=== PATIENT | male | born 1935 | race Caucasian/White ===

== ENCOUNTER → 2018-03-23 15:04 | Outpatient (CLI) | payer MEDICARE, SELFPAY ==
[2018-03-23 18:12] LABS: Absolute Lymphocyte Count 0.96 X10^3/ul (0.83-4.51); Absolute Neutrophil Count 7.7 X10^3/uL (2.0-7.7); Basophil# 0.02 X10^3/uL; Basophil% 0.2 % (0-1); Eosinophil# 0.06 X10^3/uL; Eosinophils% 0.6 % (0-5); Lymphocyte # 0.96 X10^3/ul (4.0); Lymphocyte % 10.4 % (19-41); Mean Corp Hgb Conc 31.4 g/gl (32-36); Mean Corpuscular Hgb 34.4 pg (27.0-32.0); Mean Corpuscular Volume 109.4 fL (80-94); Mean Platelet Vol. 11.1 fl (6.2-12.0); Monocyte# 0.47 X10^3/uL; Monocyte% 5.1 % (0-10); Neutrophil # 7.73 X10^3/uL (2.7-7.7); Neutrophil % 83.5 % (47-70); Platelet Count 135 K/mm3 (150-450); RBC Distribution Width CV 15.1 % (11.6-14.6); RBC Distribution Width SD 59.6 fl (35.1-43.9); White Blood Count 9.3 K/mm3 (4.4-11.0)
[2018-03-23 18:13] LABS: POSITIVE COUNT NO; POSITIVE DIFFERENTIAL NO; POSITIVE MORPHOLOGY NO
== END ==
PROVIDERS: Family Provider Family Medicine; PCP Family Medicine; Visit Provider Family Medicine
DX: I10 Essential (primary) hypertension (principal); E11.9 Type 2 diabetes mellitus without complications; E78.5 Hyperlipidemia, unspecified; R51 Headache
CPT/HCPCS: 36415; 85025

== ENCOUNTER 2018-12-28 18:15 | Emergency (ER) | payer MEDICARE, SELFPAY ==
[2018-12-28 18:16] VITALS: BP 149/76; PULSE 60; RESP 23; TEMP 36.9; O2SAT 97
--- NOTE | 2018-12-28 18:35 | RAD_ITS ---
STUDY: X-RAY - LEFT SHOULDER REASON FOR EXAM: Male, 83 years old. Shoulder TECHNIQUE: 2 view(s) of the shoulder. COMPARISON: None. FINDINGS: There is a minimally displaced fracture of the left humeral neck. Mild degenerative changes are present. Left chest pacemaker is noted. Soft tissues are unremarkable. RAD/Shoulder min 2 Views IMPRESSION: Minimally displaced fracture of the left humeral neck. Electronically Signed: Meet Whelan, at 19:27 EDT Tel , Service support ,
[2018-12-28] MEDS: Morphine 2 MG/ML Syringe IV (18:38)
--- NOTE | 2018-12-28 19:37 | ED.VISSUMM ---
- ER Visit Summary Date of Service: 12/28/18 Chief Complaint: Left shoulder pain History of Present Illness: The patient is a 83 M who has left shoulder pain. He injured it today when they were pulling him up from his chair. Patient has a history of a stroke with left-sided deficits and he needs constant care to help him. The pain is worse with moving it. No history of any fractures on the side. Physical Examination: Left shoulder exam reveals diffuse tenderness proximally. There is a deformity noted with swelling. No clavicular tenderness. He has decreased range of motion without pain when it at rest but with movement he has pain. He has a 2+ radial pulse on the left side Test Results: Left shoulder x-ray reveals a minimally displaced left humeral neck fracture Emergency Department Course and Treatment: Patient will be placed in a sling for comfort. I gave him morphine here but he was still having pain so he was given fentanyl. I will give him oxycodone for home. He will follow-up with his PCP Treatment Plan: [] Disposition: Discharged Impression: Left humeral neck fracture This note was generated with [employer] dictation software. It may contain incorrect words, spelling, and punctuation that were not noted in review of the chart prior to signing ED Disposition - Plan for ED Patient: Referrals: Quirino Watts DO [Primary Care Provider] -
--- NOTE | 2018-12-28 19:38 | ED.DEP ---
ED Disposition - Plan for ED Patient: Disposition: Home or Assisted Living Instructions: ED Fx Shoulder Prescriptions: Oxycodone [Oxyir] 5 mg PO Q6H PRN PRN 3 Days #12 tab PRN Reason: Pain Referrals: Quirino Watts DO [Primary Care Provider] -
[2018-12-28] MEDS: fentaNYL 100 MCG/2 ML Ampul 50 MCG IV (19:48)
[2018-12-28 19:54] VITALS: BP 127/74; PULSE 60; RESP 18; O2SAT 95
[2018-12-28] MEDS: Ondansetron ODT 4 MG Tablet PO (20:11)
[2018-12-28 20:16] VITALS: PULSE 60; RESP 18; O2SAT 95
== END 2018-12-28 20:17 | disposition home or self-care (01) ==
PROVIDERS: Emergency Provider Emergency Medicine; Family Provider Family Medicine; PCP Family Medicine
DX: S42.302A Unspecified fracture of shaft of humerus, left arm, initial encounter for closed fracture (principal); X50.1XXA Overexertion from prolonged static or awkward postures, initial encounter; Y93.9 Activity, unspecified; Y92.9 Unspecified place or not applicable; I25.10 Atherosclerotic heart disease of native coronary artery without angina pectoris; Z86.73 Personal history of transient ischemic attack (TIA), and cerebral infarction without residual deficits; Z79.82 Long term (current) use of aspirin; Z79.899 Other long term (current) drug therapy
CPT/HCPCS: 73030; 96374; 96375; 99285; A4216

== ENCOUNTER 2019-07-18 08:22 | Outpatient (RCR) | payer MEDICARE, SELFPAY ==
[2019-07-18 08:39] VITALS: BP 136/73; PULSE 60; RESP 16; TEMP 36; BMI 25.0
--- NOTE | 2019-07-18 10:28 | HP.PCM_ITS ---
(1) Pressure ulcer of left leg, unstageable Status: Acute Current Visit: Yes Code(s): L89.890 - Pressure ulcer of other site, unstageable (2) Pressure ulcer of left foot, unstageable Status: Acute Current Visit: Yes Code(s): L89.890 - Pressure ulcer of other site, unstageable (3) Pain in left foot Status: Acute Current Visit: Yes Code(s): M79.672 - Pain in left foot (4) PVD (peripheral vascular disease) Status: Acute Current Visit: Yes Code(s): I73.9 - Peripheral vascular disease, unspecified (5) Diabetes mellitus Status: Chronic Current Visit: No Code(s): E11.9 - Type 2 diabetes mellitus without complications History of Present Illness Date of Service: 07/18/19 Chief Complaint: Ulcer to the left posterior lower leg, left heel, distal left hallux History of Wound: This patient presents to the wound healing center today with his son and [id number] after being referred by his primary care physician. Patient is hard of hearing in is a poor historian. Family members gave a good background. Patient has had the ulcer to the left posterior lower leg and left heel for at least 2 months. They have been using different dressing supplies to keep the areas dressed and have been doing her best to keep pressure off of each of these sites. They also relate that last week sometime the patient either bumped or had his left great toe stepped on and they noticed an area of eschar to the end of his great toe starting about 3 days ago and has maybe gotten slightly larger. They continue to deny any signs of surrounding infection to the areas and they deny any drainage or purulence to any of the sites. Currently the patient denies any feelings of nausea, vomiting, fever, chills. Past Medical History Past Medical History: Chronic Problems (Last Reviewed 06/27/19 @ 10:44 by Laura Katz) BPH (benign prostatic hyperplasia) (Chronic) Hypertension (Chronic) Hyperlipemia (Chronic) Diabetes mellitus (Chronic) Allergies/Adverse Reactions: Allergies tape Adverse Reaction (Uncoded 12/28/18 18:19) Rash Home Medications: Ambulatory Orders Medication Instructions Recorded aspirin 81 mg tablet,delayed 81 mg PO DAILY 03/23/18 release amiodarone 100 mg tablet 200 mg PO DAILY #180 tab 09/11/18 Carvedilol 3.0125 mg PO BID 12/28/18 Furosemide [Lasix] 20 mg PO PRN PRN 12/28/18 Pravastatin Sodium 20 mg PO QHS 12/28/18 tamsulosin 0.4 mg capsule 0.4 mg PO DAILY #90 cap 03/05/19 Sertraline HCl [Zoloft] 12.5 mg PO DAILY 07/18/19 Smoking Status: Never smoker Review of Systems Constitutional: Denies: Chills, Fever, Weight Change Cardiovascular: Denies: Chest Pain, Palpitations Respiratory: Denies: Cough, Shortness of Breath Gastrointestinal: Denies: Nausea, Vomiting Musculoskeletal: Reports: - - Left lower extremity tenderness and areas of ulcers Skin: Reports: - - Ulcers to the left lower extremity Psychiatric: Reports: Depression - Physical Exam Vital Signs Temp Pulse Resp BP 96.8 F L 60 16 136/73 H 07/18/19 08:39 07/18/19 08:39 07/18/19 08:39 07/18/19 08:39 General: Alert, Oriented x3, Cooperative, No apparent distress Extremities: Capillary Refill Less than 3 Seconds - To distal digits of the left and right foot, No Calf Tenderness - Negative Kiko and Cutler signs bilateral, Diminished Peripheral Pulses - Nonpalpable DP and PT pulses bilateral Skin: Ulcer/ Wound - Unstageable ulcers noted to the left posterior lower leg, left heel, and left distal hallux. There is some eschar noted in these areas. There is no surrounding/streaking cellulitis, there is no purulence, no malodor, and there is no bogginess or fluctuance appreciated to these areas. Wound Measurements and Assessment WC - Nurse 1 - General Ulcer Measurement Start: 07/18/19 08:34 Freq: Status: Active Protocol: Activity Type Activity Date Activity User E-Sign Co-Sign Detail Recorded Client Recorded Date Recorded By Document 07/18/19 08:39 DL [id number] 07/18/19 09:12 DL 07/18/19 08:39 Wound Center Nurse 1 [Ulcer Assessment] #3 LLE Post -Current Size (cm) - Length 4.3 -Current Size (cm) - Width 2 -Current Size (cm) - Depth 0.1 -Total Square Cm 8.6 -Photo Taken Yes -Classification - Thickness Unclassifiable (Eschar Covered ) -Exudate Amt None Present -Wound Margin Distinct, Outline Attached -Granulation Amt None Present (0 %) -Necrosis Amt Large (67-100%) -Necrotic Tissue Type Eschar -Structure Exposed N/A -Texture (Rosa-wound Skin Appearance) Scarring -Color (Rosa-wound Skin Appearance) Erythema,Rubor -Temperature (Rosa-wound Skin No Abnormality Appearance) (Pt Warm) -Tenderness on Palpation (Rosa-wound No Skin Appearance) -Ulcer Cleansing Wound Cleanser -Foul Odor after Cleansing No -Anesthetic Used 5% Lidocaine Gel # LGrt Toe -Current Size (cm) - Length 1.1 -Current Size (cm) - Width 0.6 -Current Size (cm) - Depth 0.1 -Total Square Cm 0.66 -Photo Taken Yes -Classification - Thickness Unclassifiable (Eschar Covered ) -Exudate Amt Small -Exudate Type Serosanguineous -Wound Margin Distinct, Outline Attached -Granulation Amt None Present (0 %) -Necrosis Amt Large (67-100%) -Necrotic Tissue Type Eschar -Structure Exposed N/A -Texture (Rosa-wound Skin Appearance) Localized Edema -Moisture (Rosa-wound Skin Appearance Dry/Scaly ) -Color (Rosa-wound Skin Appearance) Erythema -Temperature (Rosa-wound Skin No Abnormality Appearance) (Pt Warm) -Tenderness on Palpation (Rosa-wound No Skin Appearance) -Ulcer Cleansing Wound Cleanser -Foul Odor after Cleansing No -Anesthetic Used 5% Lidocaine Gel #1 L Heel Cluster -Current Size (cm) - Length 4.2 -Current Size (cm) - Width 4 -Current Size (cm) - Depth 0.1 -Total Square Cm 16.8 -Photo Taken Yes -Classification - Thickness Unclassifiable (Eschar Covered ) -Exudate Amt Small -Exudate Type Serosanguineous -Wound Margin Distinct, Outline Attached -Granulation Amt None Present (0 %) -Necrosis Amt Large (67-100%) -Necrotic Tissue Type Eschar -Structure Exposed N/A -Texture (Rosa-wound Skin Appearance) Friable, Scarring -Moisture (Rosa-wound Skin Appearance Dry/Scaly ) -Color (Rosa-wound Skin Appearance) Erythema,Rubor -Temperature (Rosa-wound Skin No Abnormality Appearance) (Pt Warm) -Tenderness on Palpation (Rosa-wound No Skin Appearance) -Ulcer Cleansing Wound Cleanser -Foul Odor after Cleansing No -Anesthetic Used 5% Lidocaine Gel WC - Nurse 2 - General Ulcer CM Notes Start: 07/18/19 08:34 Freq: Status: Active Protocol: Activity Type Activity Date Activity User E-Sign Co-Sign Detail Recorded Client Recorded Date Recorded By Document 07/18/19 09:37 DV [id number] 07/18/19 09:41 DV 07/18/19 09:37 Pain Scale: 0-10 Numeric [Pain] -Is Patient Pain Free? No Musculoskeletal: Tenderness - Some tenderness appreciated with palpation/manipulation of the ulcer sites noted above, - - Paralysis to left lower extremity from previous stroke Neurological: Sensory exam intact to light touch and pain - With some altered sensation to lower extremities more so on the left side. Psych/Mental Status: Normal Affect, Appropriate Debridement Note Post-Debridement Measurements/Treatment WC - Nurse 2 - General Ulcer CM Notes Start: 07/18/19 08:34 Freq: Status: Active Protocol: Activity Type Activity Date Activity User E-Sign Co-Sign Detail Recorded Client Recorded Date Recorded By Document 07/18/19 09:37 DV [id number] 07/18/19 09:41 DV 07/18/19 09:37 Pain Scale: 0-10 Numeric Is Patient Pain Free? No No debridement was completed today Assessment/Plan Active Problems (Last Reviewed 06/27/19 @ 10:44 by Laura Katz) Pressure ulcer of left leg, unstageable (Acute) Pressure ulcer of left foot, unstageable (Acute) Pain in left foot (Acute) PVD (peripheral vascular disease) (Acute) Assessment: As noted above Plan: Initial patient examination evaluation was performed with his family members present in the room. Patient noted to have unstageable ulcers as noted above to the left lower extremity with eschar overlying these areas. No debridement was performed today due to these appearing to be of a vascular etiology. Each of the sites was dressed with Betadine painted to the areas followed by dry sterile dressing. The patient as well as his family members were educated on the absolute importance of keeping each of these ulcer sites completely offloaded at all times while patient is seated or laying down. He is to do this with the assistance of pillows and to keep the ulcer sites complet maged floated with nothing but air underneath of them. These areas do not appear acutely infected at this time. Due to these areas appearing vascular in nature as well as the new onset of the distal left hallux eschar that has been getting slowly worse over the last few days, I feel it is in the patient's best interest to have a full vascular work-up sooner than later. This patient is scheduled a t this time to see Dr. De Leon on July 22. Patient was instructed that should the areas start to progressively worsen before this appointment, that they are to go to the emergency room. All questions were answered to the patient and the patient's family satisfaction. Again there continue to monitor for any signs or symptoms of local infection or any significant worsening of his ulcer sites, and they are to go to the emergency room immediately if noted. Otherwise, the patient will follow back up in clinic in 1 week to check on progress.
== END 2019-08-16 23:59 ==
LOC: WC 08:22
PROVIDERS: Family Provider Family Medicine; PCP Family Medicine; Visit Provider Podiatrist
DX: L89.890 Pressure ulcer of other site, unstageable (principal); I73.9 Peripheral vascular disease, unspecified; E11.9 Type 2 diabetes mellitus without complications; I10 Essential (primary) hypertension; E78.5 Hyperlipidemia, unspecified; N40.0 Benign prostatic hyperplasia without lower urinary tract symptoms; Z79.899 Other long term (current) drug therapy; Z79.82 Long term (current) use of aspirin; F32.9 Major depressive disorder, single episode, unspecified
CPT/HCPCS: 99213; G0463

== ENCOUNTER → 2019-07-25 08:36 | Outpatient (CLI) | payer MEDICARE, SELFPAY ==
[2019-07-18 08:39] VITALS: BMI 25.0
[2019-07-24 14:57] VITALS: BMI 25.0
--- NOTE | 2019-07-25 08:39 | ADUL_ITS ---
Reason For Study: Atherosclerosis Left Velocities Ext Iliac Artery, dist = 54.4 cm./sec. Common Femoral Artery, mid = 56.3 cm./sec. Supf. Femoral Artery, prox = 63.9 cm./sec. Supf. Femoral Artery, mid = 46.8 cm./sec. Supf. Femoral Artery, dist = 31.1 cm./sec. Profunda Femoral Artery = 28.9 cm./sec. Popliteal Artery, proximal, = 40.6 cm./sec. Popliteal Artery, mid = 30.4 cm./sec. Popliteal Artery, distal = 31.5 cm./sec. Post. Tibial Artery, prox = 31.1 cm./sec. Post Tibial Artery, mid = 28.9 cm./sec. Post Tibial Artery, dist. = 47.8 cm./sec. Peroneal Artery, prox = 43.1 cm./sec. Peroneal Artery, mid = 68.6 cm./sec. Peroneal Artery,dist. = 59 cm./sec. Ant.Tibial Artery, prox = 55.3 cm./sec. Ant Tibial Artery, mid = 63.8 cm./sec. Ant. Tibial Artery, distal = 55.3 cm./sec. Procedure Exam performed in department. Interpretation Summary 1. Left leg with no stenosis and triphasic flow throughout. Ordering Physician: Kyaw De Leon Referring Physician: Nolan Watts M.D. Performed By: Sherry Bond RVT
--- NOTE | 2019-07-25 08:39 | ART_ITS ---
Reason For Study: Atherosclerosis Procedure A bilateral lower extremity continuous wave Doppler with analog waveform analysis and ankle brachial indexes. Left Segmental Pressures Left brachial= 118mmHg. Left posterior tibial artery = 194mmHg. Left dorsalis pedis artery = 172mmHg. Left digit = 83 mmHg. The left dorsalis pedis waveforms are monophasic. The left posterior tibial artery waveforms are biphasic. Right Segmental Pressures Right brachial= 117mmHg. Right posterior tibial artery = >254mmHg. Right dorsalis pedis artery = 117mmHg. Right digit = 66 mmHg. The right dorsalis pedis waveforms are biphasic. The right posterior tibial artery waveforms are biphasic. Indices The right ankle brachial index by the dorsalis pedis is 0.99. The right ankle brachial index by the posterior tibial artery is NC. The right digital-brachial index is 0.56. The left ankle brachial index by the dorsalis pedis is 1.46. The left ankle brachial index by the posterior tibial artery is 1.64. The left digital-brachial index is 0.70. Interpretation Summary 1. right leg with ROYAL 0.99 and DBI 0.56 and biphasic flow. 2. Left with ROYAL 1.64 and more of monohasic waveform. DBI 0.7. Further evaluation as clinically warranted. Ordering Physician: Kyaw De Leon Referring Physician: Nolan Watts M.D. Performed By: Sherry Bond RVT
[2019-07-25 11:07] LABS: Absolute Neutrophil Count 5.3 X10^3/uL (2.0-7.7); Basophil# 0.01 X10^3/uL; Basophil% 0.2 % (0-1); Eosinophil# 0.04 X10^3/uL; Eosinophils% 0.6 % (0-5); Hematocrit 37.7 % (40-54); Lymphocyte % 9.3 % (19-41); Mean Corp Hgb Conc 31.8 g/dL (32-36); Mean Corpuscular Hgb 36.1 pg (27.0-32.0); Mean Corpuscular Volume 113.6 fL (80-94); Mean Platelet Vol. 11.7 fl (6.2-12.0); Monocyte# 0.45 X10^3/uL; NRBC Flagged by Analyzer 0 % (0-5); Neutrophil # 5.28 X10^3/uL (2.7-7.7); Neutrophil % 81.8 % (47-70); POSITIVE COUNT YES; POSITIVE DIFFERENTIAL YES; POSITIVE MORPHOLOGY YES; Platelet Count 94 K/mm3 (150-450); RBC Distribution Width CV 15.4 % (11.6-14.6); RBC Distribution Width SD 65.1 fl (35.1-43.9); Red Blood Count 3.32 M/mm3 (4.6-6.2); White Blood Count 6.5 K/mm3 (4.4-11.0)
[2019-07-25 11:08] LABS: Differential Indicated SCAN CRITERIA MET
[2019-07-25 11:37] LABS: ALB/GLOB Ratio 0.8 RATIO (0.9-2.4); AST(SGOT) 42 U/L (15-37); Alanine Aminotransfer ALT/SGPT 69 U/L (16-61); Albumin, Serum 2.5 g/dL (3.2-5.0); Alkaline Phosphatase 92 U/L (45-117); Anion Gap 4 (5-15); BUN 29 mg/dL (7-18); BUN/Creat Ratio 33.9 RATIO (10-20); Calcium,Total 8.1 mg/dL (8.5-10.1); Chloride 110 mmol/L (98-107); Creatinine, Serum 0.86 mg/dL (0.70-1.30); EST Glomerular Filtration Rate 90 mL/min (>60); Est Glom Filt Rate - Afr Amer 109 mL/min (>60); Globulin 3.1 g/dL (2.2-4.2); Glucose 141 mg/dL (74-106); Potassium 3.1 mmol/L (3.5-5.1); Protein, Total 5.6 g/dL (6.4-8.2); Sodium Level 142 mmol/L (136-145)
[2019-07-25 11:45] LABS: Anisocytosis 1+; Platelet Estimate MOD DEC (ADEQ)
== END ==
PROVIDERS: Family Provider Family Medicine; PCP Family Medicine; Referring Provider Surgery Vascular Surgery; Visit Provider Surgery Vascular Surgery
DX: I70.245 Atherosclerosis of native arteries of left leg with ulceration of other part of foot (principal); L89.890 Pressure ulcer of other site, unstageable; Z86.73 Personal history of transient ischemic attack (TIA), and cerebral infarction without residual deficits
CPT/HCPCS: 36415; 80053; 85025; 93922; 93926

== ENCOUNTER 2019-09-11 09:31 | Outpatient (RCR) | payer MEDICARE, SELFPAY ==
[2019-07-24 14:57] VITALS: BMI 25.0
[2019-08-17 01:01] VITALS: BP 136/73; PULSE 60; RESP 16; TEMP 36
[2019-09-11 09:35] VITALS: BP 101/61; PULSE 60; RESP 18; TEMP 35.8; BMI 25.0
--- NOTE | 2019-09-11 12:47 | PCM.WC.HP ---
(1) Peripheral arterial occlusive disease Status: Acute Current Visit: Yes Code(s): I77.9 - Disorder of arteries and arterioles, unspecified (2) Cerebrovascular accident Status: Chronic Current Visit: Yes Code(s): I63.9 - Cerebral infarction, unspecified Comment: (3) PVD (peripheral vascular disease) Status: Acute Current Visit: Yes Code(s): I73.9 - Peripheral vascular disease, unspecified (4) Failure to thrive in adult Status: Acute Current Visit: Yes Code(s): R62.7 - Adult failure to thrive (5) Pressure ulcer of left foot, unstageable Status: Acute Current Visit: Yes Code(s): L89.890 - Pressure ulcer of other site, unstageable (6) Pressure ulcer, stage 2 Status: Acute Current Visit: Yes Qualifiers: Pressure injury location: sacral region Qualified Code(s): L89.152 - Pressure ulcer of sacral region, stage 2 Code(s): L89.92 - Pressure ulcer of unspecified site, stage 2 Comment: left foot, onset 09/01/17 (7) Dysphagia as late effect of cerebrovascular accident (CVA) Status: Acute Current Visit: Yes Code(s): I69.391 - Dysphagia following cerebral infarction (8) Acute renal failure Status: Acute Current Visit: Yes Code(s): N17.9 - Acute kidney failure, unspecified (9) Malnutrition due to starvation Status: Acute Current Visit: Yes Code(s): E46 - Unspecified protein-calorie malnutrition History of Present Illness Date of Service: 09/11/19 Chief Complaint: Ulcer to the left posterior lower leg, left heel, distal left hallux History of Wound: This patient presents to the wound healing center July [address] Alvarado states he met with his son and [id number] after being referred by his primary care physician. Patient is hard of hearing in is a poor historian. Family members gave a good background. Patient has had the ulcer to the left posterior lower leg and left heel for at least 2 months. They have been using different dressing supplies to keep the areas dressed and have been doing her best to keep pressure off of each of these sites. They also relate that last week sometime the patient either bumped or had his left great toe stepped on and they noticed an area of eschar to the end of his great toe starting about 3 days ago and has maybe gotten slightly larger. They continue to deny any signs of surrounding infection to the areas and they deny any drainage or purulence to any of the sites. Currently the patient denies any feelings of nausea, vomiting, fever, chills. Patient was seen by Dr. De Leon and studies were done that showed that he has arterial flow problems into the left lower leg probably from the stroke. The son complains that he keeps getting new wounds and he has one on his sacral area but the ones on the back of the legs have eschar but the eschar goes deep into the muscle of his legs. He also has not eaten because he has dysphasia and this has started in the last few months but it is gotten worse in the last few days where he is not eaten anything. Patient also shows on his lab work anemia malnutrition low platelet count down to 94. After evaluating the patient and listening to family his son I discussed with him that he needs to talk with hospice for end-of-life care that his father probably only has about 6 more weeks to living if that with his inability to swallow and he is not eating or drinking. Urine output is down to almost nothing from his starvation. Family is beside themselves they just want to do what is right. Son is open to hospice and just wants to make sure that he gets good care at this time he is being cared at home by home health care which is fine but they could help him make him more comfortable. Past Medical History Past Medical History: Chronic Problems (Last Reviewed 07/24/19 @ 15:[address] Quirino Watts, DO) Rhinitis, chronic (Chronic) BPH (benign prostatic hyperplasia) (Chronic) Cerebrovascular accident (Chronic) 2017,2015 Hypertension (Chronic) Hyperlipemia (Chronic) Allergies/Adverse Reactions: Allergies tape Adverse Reaction (Uncoded 09/11/19 11:32) Rash Home Medications: Ambulatory Orders Medication Instructions Recorded aspirin 81 mg tablet,delayed 81 mg PO DAILY 03/23/18 release Carvedilol 3.125 mg PO BID 12/28/18 Furosemide [Lasix] 20 mg PO DAILY 12/28/18 Pravastatin Sodium 20 mg PO QHS 12/28/18 Sertraline HCl [Zoloft] 25 mg PO DAILY 07/18/19 levocetirizine 5 mg tablet 5 mg PO DAILY #30 tab 07/24/19 Acetaminophen [Tylenol] 650 mg PO BID 09/11/19 Amiodarone HCl [Pacerone] 200 mg PO BID 09/11/19 Lives: Spouse/ Significant Other Smoking Status: Never smoker Alcohol: None Drugs: None Review of Systems Constitutional: Denies: Chills, Fever Eyes: Reports: Pain - All over. Denies: Blurred vision, Drainage HEENT: Reports: Difficulty Hearing, Difficulty Swallowing, Dysphasia. Denies: Sore Throat, Visual Changes Cardiovascular: Denies: Chest Pain, Palpitations, Syncope Respiratory: Denies: Cough, Shortness of Breath Gastrointestinal: Denies: Abdominal Pain, Nausea, Vomiting Genitourinary: Denies: Dysuria, Frequency Musculoskeletal: Denies: Joint Pain, Muscle pain Skin: Denies: Jaundice, Rash Neurological: Denies: Balance problems, Change in Speech, Difficulty swallowing, Focal weakness Psychiatric: Denies: Anxiety, Depression Endocrine: Denies: Change in Body Habitus Hematologic/ Lymphatic: Denies: Adenopathy - Physical Exam Vital Signs Temp Pulse Resp BP 96.4 F L 60 18 101/61 09/11/19 09:35 09/11/19 09:35 09/11/19 09:35 09/11/19 09:35 General: Oriented x3, Cooperative, Well developed HEENT: Atraumatic, PERRLA Oral: Moist Mucosa Neck: Supple, No JVD Lungs: Clear to auscultation, Normal air movement Cardiovascular: Regular Rhythm, Irregular Rate, Murmur Abdomen: Soft, No Hepato-splenomegaly, Hypoactive Bowel Sounds, Tender - The gastric area Extremities: No clubbing, Edema - Left arm and left lower leg foot Skin: Ulcer/ Wound - Posterior bilateral lower extremities coccyx elbows Wound Measurements and Assessment WC - Nurse 1 - General Ulcer Measurement Start: 09/11/19 09:35 Freq: Status: Active Protocol: Activity Type Activity Date Activity User E-Sign Co-Sign Detail Recorded Client Recorded Date Recorded By Document 09/11/19 09:35 [facility] [id number] 09/11/19 10:02 [facility] 09/11/19 09:35 Wound Center Nurse 1 [Ulcer Assessment] #8 SACRAL CLUSTER -Current Size (cm) - Length 3.4 -Current Size (cm) - Width 5.3 -Current Size (cm) - Depth 0.1 -Total Square Cm 18.02 -Date of Last Picture (Recall this 09/11/19 field) -Photo Taken Yes -Epithelialization None Present -Tunneling No -Undermining/Tunneling No -Circular Undermining No -Exudate Amt None Present -Wound Margin Distinct, Outline Attached -Granulation Amt Medium (34-66%) -Granulation Quality Red -Slough/Fibrin Yes -Necrosis Amt Medium (34-66%) -Necrotic Tissue Type Adherent Slough -Texture (Rsoa-wound Skin Appearance) Assessed, Scarring -Moisture (Rosa-wound Skin Appearance Assessed ) -Color (Orsa-wound Skin Appearance) Assessed, Erythema -Temperature (Rosa-wound Skin No Abnormality Appearance) (Pt Warm) -Tenderness on Palpation (Rosa-wound No Skin Appearance) -Ulcer Cleansing SOAPY WATER -Foul Odor after Cleansing No -Anesthetic Used 4% Lidocaine Solution #7- L GLUTEAL FOLD -Combined with other wound No -Current Size (cm) - Length 3 -Current Size (cm) - Width 1.8 -Current Size (cm) - Depth 0.1 -Total Square Cm 5.4 -Date of Last Picture (Recall this 09/11/19 field) -Photo Taken Yes -Epithelialization None Present -Tunneling No -Undermining/Tunneling No -Circular Undermining No -Exudate Amt None Present -Wound Margin Distinct, Outline Attached -Granulation Amt None Present (0 %) -Slough/Fibrin Yes -Necrosis Amt Large (67-100%) -Necrotic Tissue Type Eschar -Texture (Rosa-wound Skin Appearance) Assessed, Scarring -Moisture (Rosa-wound Skin Appearance Assessed ) -Color (Rosa-wound Skin Appearance) Assessed, Erythema -Temperature (Rosa-wound Skin No Abnormality Appearance) (Pt Warm) -Tenderness on Palpation (Rosa-wound No Skin Appearance) -Ulcer Cleansing SOAPY WATER -Foul Odor after Cleansing No -Anesthetic Used 4% Lidocaine Solution #6 RLE POSTERIOR CLUSTER -Combined with other wound No -Current Size (cm) - Length 12 -Current Size (cm) - Width 1.3 -Current Size (cm) - Depth 0.2 -Total Square Cm 15.6 -Date of Last Picture (Recall this 09/11/19 field) -Photo Taken Yes -Epithelialization None Present -Tunneling No -Undermining/Tunneling No -Circular Undermining No -Exudate Amt None Present -Wound Margin Distinct, Outline Attached -Granulation Amt None Present (0 %) -Slough/Fibrin Yes -Necrosis Amt Large (67-100%) -Necrotic Tissue Type Eschar -Texture (Rosa-wound Skin Appearance) Assessed, Scarring -Moisture (Rosa-wound Skin Appearance Assessed,Dry/ ) Scaly -Color (Rosa-wound Skin Appearance) Assessed, Erythema -Temperature (Rosa-wound Skin No Abnormality Appearance) (Pt Warm) -Tenderness on Palpation (Rosa-wound Yes Skin Appearance) -Ulcer Cleansing SOAPY WATER -Foul Odor after Cleansing No -Anesthetic Used 4% Lidocaine Solution #5- R ELBOW -Combined with other wound No -Current Size (cm) - Length 1.3 -Current Size (cm) - Width 1.6 -Current Size (cm) - Depth 0.2 -Total Square Cm 2.08 -Date of Last Picture (Recall this 09/11/19 field) -Photo Taken Yes -Epithelialization None Present -Tunneling No -Undermining/Tunneling No -Circular Undermining No -Exudate Amt None Present -Wound Margin Distinct, Outline Attached -Granulation Amt Medium (34-66%) -Granulation Quality Pale,Red -Slough/Fibrin Yes -Necrosis Amt Medium (34-66%) -Necrotic Tissue Type Adherent Slough -Texture (Rosa-wound Skin Appearance) Assessed, Scarring -Moisture (Rosa-wound Skin Appearance Assessed,Dry/ ) Scaly -Color (Rosa-wound Skin Appearance) Assessed -Temperature (Rosa-wound Skin No Abnormality Appearance) (Pt Warm) -Tenderness on Palpation (Rosa-wound No Skin Appearance) -Ulcer Cleansing Rinsed/ Irrigated with Saline -Foul Odor after Cleansing No -Anesthetic Used 4% Lidocaine Solution #4- L ELBOW SKIN TEAR OBTAINED 09/11/19 -Combined with other wound No -Current Size (cm) - Length 1.1 -Current Size (cm) - Width 2 -Current Size (cm) - Depth 0.1 -Total Square Cm 2.2 -Date of Last Picture (Recall this 09/11/19 field) -Photo Taken Yes -Epithelialization None Present -Tunneling No -Undermining/Tunneling No -Circular Undermining No -Exudate Amt Small -Exudate Type Sanguineous -Wound Margin Distinct, Outline Attached -Granulation Amt Large (67-100%) -Granulation Quality Red -Slough/Fibrin No -Necrosis Amt None Present (0 %) -Structure Exposed None/Limited to Skin Breakdown -Texture (Rosa-wound Skin Appearance) Assessed -Moisture (Rosa-wound Skin Appearance Assessed,Dry/ ) Scaly -Color (Rosa-wound Skin Appearance) Assessed, Ecchymosis -Temperature (Rosa-wound Skin No Abnormality Appearance) (Pt Warm) -Tenderness on Palpation (Rosa-wound No Skin Appearance) -Ulcer Cleansing Rinsed/ Irrigated with Saline -Foul Odor after Cleansing No -Anesthetic Used 4% Lidocaine Solution #3 LLE Post -Combined with other wound No -Current Size (cm) - Length 8.8 -Current Size (cm) - Width 1.6 -Current Size (cm) - Depth 0.4 -Total Square Cm 14.08 -Date of Last Picture (Recall this 09/11/19 field) -Photo Taken Yes -Epithelialization None Present -Tunneling No -Undermining/Tunneling No -Circular Undermining No -Exudate Amt Small -Exudate Type Sanguineous -Wound Margin Distinct, Outline Attached -Granulation Amt None Present (0 %) -Slough/Fibrin Yes -Necrosis Amt Large (67-100%) -Necrotic Tissue Type Eschar -Texture (Rosa-wound Skin Appearance) Assessed, Scarring -Moisture (Rosa-wound Skin Appearance Assessed ) -Color (Rosa-wound Skin Appearance) Assessed, Erythema -Temperature (Rosa-wound Skin No Abnormality Appearance) (Pt Warm) -Tenderness on Palpation (Rosa-wound Yes Skin Appearance) -Ulcer Cleansing SOAPY WATER -Foul Odor after Cleansing No -Anesthetic Used 4% Lidocaine Solution #2 L Great Toe -Combined with other wound No -Current Size (cm) - Length 0.1 -Current Size (cm) - Width 0.1 -Current Size (cm) - Depth 0.1 -Total Square Cm 0.01 -Date of Last Picture (Recall this 09/11/19 field) -Photo Taken Yes -Epithelialization None Present -Tunneling No -Undermining/Tunneling No -Circular Undermining No -Exudate Amt None Present -Wound Margin Distinct, Outline Attached -Granulation Amt None Present (0 %) -Slough/Fibrin Yes -Necrosis Amt Large (67-100%) -Necrotic Tissue Type Eschar -Texture (Rosa-wound Skin Appearance) Assessed, Scarring -Moisture (Rosa-wound Skin Appearance Assessed ) -Color (Rosa-wound Skin Appearance) Assessed, Erythema -Temperature (Rosa-wound Skin No Abnormality Appearance) (Pt Warm) -Tenderness on Palpation (Rosa-wound No Skin Appearance) -Ulcer Cleansing SOAPY WATER -Foul Odor after Cleansing No -Anesthetic Used 4% Lidocaine Solution #1 L Heel Cluster -Combined with other wound No -Current Size (cm) - Length 5.3 -Current Size (cm) - Width 2.6 -Current Size (cm) - Depth 0.3 -Total Square Cm 13.78 -Date of Last Picture (Recall this 09/11/19 field) -Photo Taken Yes -Epithelialization None Present -Tunneling No -Undermining/Tunneling Yes -Undermining/Tunneling Starts (O' 6 clock) -Undermining/Tunneling Ends (O'clock) 9 -Maximum Distance (cm) 0.4 -Circular Undermining No -Exudate Amt Small -Exudate Type Sanguineous -Wound Margin Distinct, Outline Attached -Granulation Amt None Present (0 %) -Slough/Fibrin Yes -Necrosis Amt Large (67-100%) -Necrotic Tissue Type Eschar -Texture (Rosa-wound Skin Appearance) Assessed, Scarring -Moisture (Rosa-wound Skin Appearance Assessed ) -Color (Rosa-wound Skin Appearance) Assessed, Erythema -Temperature (Rosa-wound Skin No Abnormality Appearance) (Pt Warm) -Tenderness on Palpation (Rosa-wound No Skin Appearance) -Ulcer Cleansing SOAPY WATER -Foul Odor after Cleansing No -Anesthetic Used 4% Lidocaine Solution WC - Nurse 2 - General Ulcer CM Notes Start: 09/11/19 09:35 Freq: Status: Active Protocol: Activity Type Activity Date Activity User E-Sign Co-Sign Detail Recorded Client Recorded Date Recorded By Document 09/11/19 10:27 MW [id number] 09/11/19 10:52 MW 09/11/19 10:27 Wound Center Nurse 2 [Procedure/Treatment] #8 SACRAL CLUSTER -Time 10:30 -Correct Patient Yes -Correct Side, Site, Position Yes -Correct Procedure Yes -Procedure Performed No -Wound/Ulcer Outcome Not Healed -Ulcer Cleansing Not Cleansed -Foul Odor after Cleansing No -Bioengineered Tissue No -Bleeding Controlled with NA -Offloading No -Treatment Response Procedure Tolerated Well #7- L GLUTEAL FOLD -Time 10:31 -Correct Patient Yes -Correct Side, Site, Position Yes -Correct Procedure Yes -Procedure Performed No -Wound/Ulcer Outcome Not Healed -Ulcer Cleansing Not Cleansed -Foul Odor after Cleansing No -Bleeding Controlled with NA -Offloading No -Treatment Response Procedure Tolerated Well #6 RLE POSTERIOR CLUSTER -Time 10:31 -Correct Patient Yes -Correct Side, Site, Position Yes -Correct Procedure Yes -Procedure Performed No -Wound/Ulcer Outcome Not Healed -Ulcer Cleansing Not Cleansed -Foul Odor after Cleansing No -Bioengineered Tissue No -Bleeding Controlled with NA -Offloading No -Treatment Response Procedure Tolerated Well #5- R ELBOW -Time 10:31 -Correct Patient Yes -Correct Side, Site, Position Yes -Correct Procedure Yes -Procedure Performed No -Wound/Ulcer Outcome Not Healed -Ulcer Cleansing Not Cleansed -Foul Odor after Cleansing No -Bioengineered Tissue No -Bleeding Controlled with NA -Offloading No -Treatment Response Procedure Tolerated Well #4- L ELBOW SKIN TEAR OBTAINED 09/11/19 -Time 10:32 -Correct Patient Yes -Correct Side, Site, Position Yes -Correct Procedure Yes -Procedure Performed No -Wound/Ulcer Outcome Not Healed -Ulcer Cleansing Not Cleansed -Foul Odor after Cleansing No -Bioengineered Tissue No -Bleeding Controlled with NA -Offloading No -Treatment Response Procedure Tolerated Well #3 LLE Post -Time 10:32 -Correct Patient Yes -Correct Side, Site, Position Yes -Correct Procedure Yes -Procedure Performed No -Wound/Ulcer Outcome Not Healed -Ulcer Cleansing Not Cleansed -Foul Odor after Cleansing No -Bioengineered Tissue No -Bleeding Controlled with NA -Offloading No -Treatment Response Procedure Tolerated Well #2 L Great Toe -Time 10:32 -Correct Patient Yes -Correct Side, Site, Position Yes -Correct Procedure Yes -Procedure Performed No -Wound/Ulcer Outcome Not Healed -Ulcer Cleansing Not Cleansed -Foul Odor after Cleansing No -Bioengineered Tissue No -Bleeding Controlled with NA -Offloading No -Treatment Response Procedure Tolerated Well #1 L Heel Cluster -Time 10:33 -Correct Patient Yes -Correct Side, Site, Position Yes -Correct Procedure Yes -Procedure Performed No -Wound/Ulcer Outcome Not Healed -Ulcer Cleansing Not Cleansed -Foul Odor after Cleansing No -Bioengineered Tissue No -Bleeding Controlled with NA -Offloading No -Treatment Response Procedure Tolerated Well [See Physician Procedure note for Specifics] Pain Scale: 0-10 Numeric [Pain] -Is Patient Pain Free? Yes Musculoskeletal: No Tenderness to Palpation of Joints or Extremities Lymphatic: No Cervical, Supraclavicular, or Inguinal Adenopathy Neurological: Cranial nerves II-XII grossly intact, Neuro grossly intact Psych/Mental Status: Normal Affect, Appropriate Debridement Note Post-Debridement Measurements/Treatment WC - Nurse 2 - General Ulcer CM Notes Start: 09/11/19 09:35 Freq: Status: Active Protocol: Activity Type Activity Date Activity User E-Sign Co-Sign Detail Recorded Client Recorded Date Recorded By Document 09/11/19 10:27 MW [id number] 09/11/19 10:52 MW 09/11/19 10:27 Wound Center Nurse 2 #8 SACRAL CLUSTER -Time 10:30 -Correct Patient Yes -Correct Side, Site, Position Yes -Correct Procedure Yes -Procedure Performed No -Wound/Ulcer Outcome Not Healed -Ulcer Cleansing Not Cleansed -Foul Odor after Cleansing No -Bioengineered Tissue No -Bleeding Controlled with NA -Offloading No -Treatment Response Procedure Tolerated Well #7- L GLUTEAL FOLD -Time 10:31 -Correct Patient Yes -Correct Side, Site, Position Yes -Correct Procedure Yes -Procedure Performed No -Wound/Ulcer Outcome Not Healed -Ulcer Cleansing Not Cleansed -Foul Odor after Cleansing No -Bleeding Controlled with NA -Offloading No -Treatment Response Procedure Tolerated Well #6 RLE POSTERIOR CLUSTER -Time 10:31 -Correct Patient Yes -Correct Side, Site, Position Yes -Correct Procedure Yes -Procedure Performed No -Wound/Ulcer Outcome Not Healed -Ulcer Cleansing Not Cleansed -Foul Odor after Cleansing No -Bioengineered Tissue No -Bleeding Controlled with NA -Offloading No -Treatment Response Procedure Tolerated Well #5- R ELBOW -Time 10:31 -Correct Patient Yes -Correct Side, Site, Position Yes -Correct Procedure Yes -Procedure Performed No -Wound/Ulcer Outcome Not Healed -Ulcer Cleansing Not Cleansed -Foul Odor after Cleansing No -Bioengineered Tissue No -Bleeding Controlled with NA -Offloading No -Treatment Response Procedure Tolerated Well #4- L ELBOW SKIN TEAR OBTAINED 09/11/19 -Time 10:32 -Correct Patient Yes -Correct Side, Site, Position Yes -Correct Procedure Yes -Procedure Performed No -Wound/Ulcer Outcome Not Healed -Ulcer Cleansing Not Cleansed -Foul Odor after Cleansing No -Bioengineered Tissue No -Bleeding Controlled with NA -Offloading No -Treatment Response Procedure Tolerated Well #3 LLE Post -Time 10:32 -Correct Patient Yes -Correct Side, Site, Position Yes -Correct Procedure Yes -Procedure Performed No -Wound/Ulcer Outcome Not Healed -Ulcer Cleansing Not Cleansed -Foul Odor after Cleansing No -Bioengineered Tissue No -Bleeding Controlled with NA -Offloading No -Treatment Response Procedure Tolerated Well #2 L Great Toe -Time 10:32 -Correct Patient Yes -Correct Side, Site, Position Yes -Correct Procedure Yes -Procedure Performed No -Wound/Ulcer Outcome Not Healed -Ulcer Cleansing Not Cleansed -Foul Odor after Cleansing No -Bioengineered Tissue No -Bleeding Controlled with NA -Offloading No -Treatment Response Procedure Tolerated Well #1 L Heel Cluster -Time 10:33 -Correct Patient Yes -Correct Side, Site, Position Yes -Correct Procedure Yes -Procedure Performed No -Wound/Ulcer Outcome Not Healed -Ulcer Cleansing Not Cleansed -Foul Odor after Cleansing No -Bioengineered Tissue No -Bleeding Controlled with NA -Offloading No -Treatment Response Procedure Tolerated Well Pain Scale: 0-10 Numeric Is Patient Pain Free? Yes Wound debrided: Coccyx cluster Type of Debridement: Excisional debridement Anesthesia Used: 5% Lidocaine Gel Depth: Down to and including healthy tissue, in the subcutaneous layer Percentage of wound debrided: 100 Instrument Used: 5mm curette Tissue Removed: Slough and fibrin Severity: Limited To Skin Breakdown Amount of bleeding with debridement: None Bleeding Controlled with: Compression and gauze Patient tolerated procedure well Assessment/Plan Active Problems (Last Reviewed 07/24/19 @ 15:[address] Quirino Watts, DO) Pressure ulcer of left foot, unstageable (Acute) PVD (peripheral vascular disease) (Acute) Peripheral arterial occlusive disease (Acute) Failure to thrive in adult (Acute) Dysphagia as late effect of cerebrovascular accident (CVA) (Acute) Acute renal failure (Acute) Malnutrition due to starvation (Acute) Pressure ulcer, stage 2 (Acute) left foot, onset 09/01/17 Cerebrovascular accident (Chronic) Assessment: As noted above Plan: patient examination evaluation was performed with his family members present in the room. Patient noted to have unstageable ulcers as noted above to the left lower extremity with eschar overlying these areas. No debridement was performed today due to these appearing to be of a vascular etiology. Each of the sites was dressed with Betadine painted to the areas followed by dry sterile dressing. Discussed at length with son and reinforcing iron worker helper of hospice that his lifespan is probably limited here to probably 6 weeks at the most. The labs that were obtained were from July and I am sure they are much worse now. Son is very grateful for any help he can obtain and will be waiting for hospice of [facility] to contact them.
== END 2019-09-14 23:59 ==
LOC: WC 09:31
PROVIDERS: Family Provider Family Medicine; PCP Family Medicine; Visit Provider Podiatrist
DX: L89.152 Pressure ulcer of sacral region, stage 2 (principal); I73.9 Peripheral vascular disease, unspecified; R62.7 Adult failure to thrive; I69.391 Dysphagia following cerebral infarction; R13.10 Dysphagia, unspecified; I10 Essential (primary) hypertension; E78.5 Hyperlipidemia, unspecified; N40.0 Benign prostatic hyperplasia without lower urinary tract symptoms; Z79.899 Other long term (current) drug therapy; Z79.82 Long term (current) use of aspirin
CPT/HCPCS: 99213; G0463